=== PATIENT | male | born 1960 | race American Indian/Alaskan Native ===

== ENCOUNTER 2018-02-12 16:30 | Emergency (ER) | payer SELFPAY ==
--- NOTE | 2018-02-12 17:15 | Emergency Department Report ---
HPI - General Chief Complaint: Skin/Abscess/Foreign Body Time Seen by Provider: 02/12/18 17:06 - HPI HPI: Room 1 The patient is a 57-year-old male presenting with a chief complaint of facial bleeding. The patient states today at 14:30 he was pulling out ingrown hairs from his face when he began bleeding. The patient states he held pressure and took a shower but the bleeding continued. The patient states that one point the blood shooting out and this prompted him to come to the ED Location: Face Duration: [See above] Quality: [See above] Severity: [See above] Modifying factors: [see above] Context: [see above] Mode of transportation: [not driving] ED Past Medical Hx - Past Medical History Previous Medical History?: No Hx Diabetes: Yes Hx Psychiatric Treatment: Yes Hx Asthma: Yes Hx HIV: Yes - Surgical History Additional Surgical History: Right Arm cyst remova- 2002 - Family History Family history: no significant - Social History Smoking Status: Current Every Day Smoker (1/7 pack per day) Substance Use Type: None (denies illicit drug use) - Medications Home Medications: Home Medications Medication Instructions Recorded Confirmed Last Taken Type traMADol [Ultram] 50 mg PO Q6HR PRN #10 tablet 02/12/18 Unknown Rx ED Review of Systems ROS: Stated complaint: FACIAL BLEED Other details as noted in HPI Constitutional: no symptoms reported Eyes: denies: eye pain ENT: denies: throat pain Respiratory: no symptoms reported Cardiovascular: denies: chest pain Endocrine: no symptoms reported Skin: other (bleeding from face) Physical Exam - Physical Exam Vital Signs: Vital Signs 02/12/18 02/12/18 02/12/18 16:36 16:41 16:45 Temperature 98.1 F Pulse Rate 94 H 89 91 H Respiratory 24 20 22 Rate Blood Pressure 107/76 107/76 Physical Exam: GENERAL: The patient is well-developed well-nourished male sitting on stretcher with face bandage not appearing to be in acute distress. [] HEENT: Normocephalic. Atraumatic. Extraocular motions are intact. Patient has moist mucous membranes. NECK: Supple. Trachea midline CHEST/LUNGS: There is no respiratory distress noted. HEART/CARDIOVASCULAR: Regular. There is no tachycardia. There is no gallop rub or murmur. ABDOMEN: Abdomen is soft, nontender. Patient has normal bowel sounds. There is no abdominal distention. SKIN: There is no rash. There is no edema. There is no diaphoresis. NEURO: The patient is awake, alert, and oriented. The patient is cooperative. The patient has normal speech MUSCULOSKELETAL: There is no evidence of acute injury. ED Course Vital Signs 02/12/18 02/12/18 02/12/18 16:36 16:41 16:45 Temperature 98.1 F Pulse Rate 94 H 89 91 H Respiratory 24 20 22 Rate Blood Pressure 107/76 107/76 - Reevaluation(s) Reevaluation #1: 02/12/18 19:24 Patient remains hemostatic - Laceration /Wound Repair Left Jaw Wound Location: face Wound Length (cm): 1 (arteriolar bleeds) Wound's Depth, Shape: irregular Wound Explored: clean Betadine Prep?: Yes Anesthesia: Lidocaine w/ Epi Volume Anesthetic (ccs): 5 Wound Repaired With: sutures Deep Layer Suture Size/Type: 4:0, chromic Number Deep Layer Sutures: 3 Sterile Dressing Applied?: Yes Progress: Silver nitrate sticks 2 were used after suturing ED Medical Decision Making - Lab Data Result diagrams: 02/12/18 17:31 Critical care attestation.: If time is entered above; I have spent that time in minutes in the direct care of this critically ill patient, excluding procedure time. ED Disposition Clinical Impression: Skin ulcer of face, Bleeding from wound Disposition: DC-01 TO HOME OR SELFCARE Is pt being admited?: No Does the pt Need Aspirin: No Condition: Stable Additional Instructions: Return to the emergency department immediately should you develop worsening symptoms, fever, inability to tolerate food or liquid or any other concerns. Prescriptions: traMADol [Ultram] 50 mg PO Q6HR PRN #10 tablet PRN Reason: Pain Referrals: PRIMARY CARE, [Primary Care Provider] - 3-5 Days FILI DOMINGO MD [Staff Physician] - 3-5 Days (Dr. Domingo is a vulnerability researcher. Please follow-up with him for further evaluation) Time of Disposition: 19:25
[2018-02-12] MEDS ORDERED: XYLOCAINE 2%/ EPI 1:200,000 INFILTRATI ONE (17:19)
[2018-02-12 17:49] LABS: Basophils % (Auto) 0.4 % (0.0-1.8); Eosinophils % (Auto) 0.4 % (0.0-4.3); Hematocrit 35.6 % (35.5-45.6); Hemoglobin 11.8 gm/dl (11.8-15.2); Lymphocytes % (Auto) 26.6 % (13.4-35.0); Mean Corpuscular HGB Conc 33 % (32-34); Mean Corpuscular Hemoglobin 30 pg (28-32); Mean Corpuscular Volume 89 fl (84-94); Monocytes # (Auto) 0.6 K/mm3 (0.0-0.8); Monocytes % (Auto) 7.6 % (0.0-7.3); Platelet Count 189 K/mm3 (140-440); Red Blood Count 3.99 M/mm3 (3.65-5.03); Red Cell Distribution Width 16.6 % (13.2-15.2)
[2018-02-12 18:02] LABS: INR 0.91 (0.87-1.13)
[2018-02-12 18:03] LABS: Partial Thromboplastin Time 22.7 Sec. (24.2-36.6)
[2018-02-12] MEDS ORDERED: SILVER NITRATE TP ONE (18:52)
[2018-02-12 19:54] VITALS: BP 145/100
== END 2018-02-12 19:56 | disposition home or self-care (01) ==
LOC: ED 16:30
DX: S09.0XXA Injury of blood vessels of head, not elsewhere classified, initial encounter (principal); L98.499 Non-pressure chronic ulcer of skin of other sites with unspecified severity; R58 Hemorrhage, not elsewhere classified; E11.9 Type 2 diabetes mellitus without complications; J45.909 Unspecified asthma, uncomplicated; F17.200 Nicotine dependence, unspecified, uncomplicated; X58.XXXA Exposure to other specified factors, initial encounter; Y93.89 Activity, other specified; Y92.89 Other specified places as the place of occurrence of the external cause; Y99.8 Other external cause status
CPT/HCPCS: 36415; 85025; 85610; 85730; 86850; 86900; 86901; 99283